=== PATIENT | female | born 1945 | race Caucasian/White ===

== ENCOUNTER 2020-10-16 14:33 | Outpatient (REF) | payer MEDICARE, BC, SELFPAY ==
--- NOTE | 2020-10-16 14:36 | CT_ITS ---
EXAMINATION: CT CHEST WITHOUT CONTRAST CLINICAL INFORMATION: Nonspecific abnormal finding of lung field COMPARISON: Previous chest CT September 2019 TECHNIQUE: Multidetector volumetric CT imaging of the chest was done. Axial MIP volume rendering provided. Sagittal and coronal reformatted images were obtained. This CT examination was performed using dose optimization techniques as appropriate, variously including the following: *Automated exposure control *Adjustment of mA and/or kV according to patient size (this includes techniques or standardized protocols for targeted exams where dose is matched to indication/reason for exam; i.e. extremities or head) *Use of iterative reconstruction technique DLP: 157 mGy-cm FINDINGS: VP ACCOUNT DIRECTOR: Unremarkable. LUNGS: There are numerous new noncalcified pulmonary nodules. There are 2 new peripheral or subpleural 2 mm right upper lobe nodules adjacent to the major fissure axial image 160 and 67 series 8. There is a new 2 mm superior segment right lower lobe nodule adjacent to the major fissure axial image 160 series 8. There are new small 1 to 2 mm noncalcified clustered nodules in the superior segment of the right upper lobe for example axial image 204 series 8. Similar findings are seen in the more inferior right lower lobe adjacent to the spine for example axial image 234 or series 8. There is a new 3 mm peripheral left lower lobe nodule axial image 222 series 8 There is a new peripheral or subpleural 2 mm right middle lobe nodule adjacent to the major fissure axial image 306 series 8. There are multiple new clustered 1 to 2 mm peribronchial right lower lobe nodules, for example axial image 298 series 8. There is a new 2 mm peripheral or subpleural left upper lobe nodule adjacent to the fissure axial image 312 series 8. There is a 2 mm calcified right lower lobe nodule axial image 370 series 8 that is new. There is a 3 mm noncalcified right lower lobe nodule axial image 444 series 8 that is new. There is scarring or subsegmental atelectasis in the inferior segment of the lingula. There is a 3 mm calcified right lower lobe nodule axial image 396 series 8 that is stable. There is a 3 mm calcified left lower lobe nodule near the fissure axial image 268 series 8 that in retrospect is stable. MEDIASTINUM: There are small mediastinal lymph nodes. No enlarged lymph nodes are seen. The heart does not appear enlarged. There is moderate coronary artery calcification. There is aortic calcification. The aorta is normal in caliber. There is no pericardial effusion. PLEURA: There is no pleural effusion. No pleural mass or thickening. AXILLA: There is shotty bilateral axillary lymphadenopathy. No enlarged axillary lymph nodes are seen. UPPER ABDOMEN: There is an at least 3 x 4 cm low-attenuation lesion exophytic to the upper pole of the right kidney. Hounsfield units measure 12 without contrast and this may represent a cyst. OSSEOUS STRUCTURES: There are degenerative changes of the spine. CT/CT chest wo con IMPRESSION: Multiple new small noncalcified bilateral pulmonary nodules. Some of these are peripheral or subpleural adjacent to fissures and may represent subpleural lymph nodes. Some appear clustered peribronchial and may represent tree-in-bud appearance/mild airways disease. Moderate coronary artery calcification.
== END 2020-10-16 14:34 | disposition home or self-care (01) ==
LOC: HO.CT 14:33
PROVIDERS: PCP Internal Medicine; Visit Provider Hospitalist
DX: R91.8 Other nonspecific abnormal finding of lung field (principal)
CPT/HCPCS: 71250